=== PATIENT | male | born 1955 | race Hispanic/Latino ===

== ENCOUNTER 2016-07-12 18:39 | Emergency (ER) | payer MEDICARE, OTHER, MEDICAID ==
[2016-07-12 18:46] VITALS: BMI 22.3
[2016-07-12 19:39] LABS: BASO % 0.4 % (0.0-2.0); EOS % 0.7 % (0.0-4.0); HEMATOCRIT 32.1 % (35.0-51.0); LYMPH # 0.3 K/uL (1.0-4.3); LYMPH % 6.2 % (20.0-40.0); MEAN CELL VOLUME 88.1 fL (80.0-94.0); MEAN CORPUSCULAR HEMOGLOBIN 29.3 pg (27.0-31.0); MEAN CORPUSCULAR HGB CONC 33.3 g/dL (33.0-37.0); MEAN PLATELET VOLUME 8.7 fL (7.2-11.7); MONO # 0.4 K/uL (0.0-0.8); MONO % 6.8 % (0.0-10.0); NRBC % 0.1 % (0.0-2.0); PLATELET COUNT 31 K/uL (130-400); RED CELL DISTRIBUTION WIDTH 17.5 % (11.5-14.5); WHITE BLOOD COUNT 5.4 K/uL (4.8-10.8)
[2016-07-12 19:47] LABS: CHLORIDE 107 mmol/L (98-107); SODIUM 136 mmol/L (132-148)
[2016-07-12 19:49] LABS: GFR AFRICAN-AMERICAN > 60
[2016-07-12 19:50] LABS: ALKALINE PHOSPHATASE 168 U/L (38-126); ALT/SGPT 59 U/L (21-72); AST/SGOT 71 U/L (17-59); BILIRUBIN,TOTAL 1.5 mg/dL (0.2-1.3); BLOOD UREA NITROGEN 36 mg/dL (9-20); CALCIUM 8.7 mg/dl (8.6-10.4); CARBON DIOXIDE 17 mmol/L (22-30); GLUCOSE,RANDOM 223 mg/dL (75-110)
[2016-07-12 19:51] LABS: ALCOHOL SERUM < 10 mg/dl (0-10)
--- NOTE | 2016-07-12 19:54 | C.PDOC ---
History Of Present Illness 61 y/o male, brought to ED by family, with past medical history including schizophrenia, hepatic cirrhosis, hepatic encephalopathy. Family reports patient has been at [facility] for 3 days, and notes it is unclear if patient is getting lactulose. Family reports no BM today. Notes that patient usually has bowel movement with lactulose. Denies any other complaints; no fever, chills , nausea, vomiting, diarrhea, or other associated symptoms. Time Seen by Provider: 07/12/16 19:16 Chief Complaint (Nursing): Altered Mental Status History Per: Family History/Exam Limitations: no limitations Current Symptoms Are (Timing): Still Present Recent travel outside of the [place]: No Past Medical History Reviewed: Historical Data, Nursing Documentation, Vital Signs Vital Signs: Last Vital Signs Temp 97.7 F 07/12/16 18:46 Pulse 106 H 07/12/16 18:46 Resp 22 07/12/16 18:46 BP 141/99 H 07/12/16 18:46 Pulse Ox 99 07/12/16 19:54 - Medical History PMH: Alzheimer's Disease, Anemia, Asthma, Bipolar Disorder, CAD, COPD, Diabetes , Fractures, Gall Bladder Disease, HTN, Hypercholesterolemia, Hypothyroidism, Paranoia, Chronic Kidney Disease (STAGE 2), Schizophrenia, Seizures Surgical History: Endoscopy - [facility] Procedures OTHER ENDOSCOPY OF SM INTEST (10/31/14) OTHER LOCAL DESTRUC SKIN (09/24/14) Family History: States: Unknown Family Hx - Social History Hx Tobacco Use: Yes Hx Alcohol Use: Yes Hx Substance Use: No - Immunization History Hx Tetanus Toxoid Vaccination: No Hx Influenza Vaccination: Yes Hx Pneumococcal Vaccination: No Review Of Systems Constitutional: Negative for: Fever, Chills Cardiovascular: Negative for: Chest Pain Respiratory: Negative for: Cough, Shortness of Breath Gastrointestinal: Positive for: Constipation. Negative for: Nausea, Vomiting, Diarrhea Skin: Negative for: Rash Neurological: Negative for: Headache, Dizziness Physical Exam - Physical Exam Appears: Non-toxic, Other (confused, pleasant ) Skin: Warm, Dry, Other (mildly icteric) Head: Atraumatic, Normacephalic Oral Mucosa: Moist Chest: Symmetrical Cardiovascular: Rhythm Regular Respiratory: Normal Breath Sounds, No Rales, No Rhonchi, No Wheezing Gastrointestinal/Abdominal: Soft, No Tenderness Extremity: Normal ROM, Capillary Refill (< 2 sec. ) Neurological/Psych: Oriented x3, Normal Speech, Normal Cognition ED Course And Treatment - Laboratory Results Result Diagrams: 07/12/16 19:35 07/12/16 19:35 Lab Interpretation: Normal (ammonia 20 (nl 9-33)) ECG: Interpreted By Me ECG Rhythm: Sinus Rhythm O2 Sat by Pulse Oximetry: 99 (RA) Pulse Ox Interpretation: Normal - Radiology CXR: Interpreted by Me CXR Interpretation: Yes: No Acute Disease Progress Note: EKG, CXR, labs ordered. Lactulose given. Reevaluation Time: 20:18 Reassessment Condition: Unchanged (baseline) Medical Decision Making Medical Decision Making: baseline schizophrenia, normal ammonia level so seems he's getting his lactulose @ the [facility] return to [facility]- continue same regimen Disposition Doctor Will See Patient In The: Office Counseled Patient/Family Regarding: Studies Performed, Diagnosis - Disposition Disposition: HOME/ ROUTINE Disposition Time: 20:19 Condition: GOOD - Clinical Impression Clinical Impression: Schizophrenia - Scribe Statement The provider has reviewed the documentation as recorded by the [employer] All medical record entries made by the Bimal[employer] were at my direction and personally dictated by me. I have reviewed the chart and agree that the record accurately reflects my personal performance of the history, physical exam, medical decision making, and the department course for this patient. I have also personally directed, reviewed, and agree with the discharge instructions and disposition.
[2016-07-12 20:20] LABS: EOSINOPHIL 1 % (0-4); NEUTROPHIL 86 % (50-75); TOTAL CELLS COUNTED 100
[2016-07-12 20:50] LABS: RBC URINE < 1 /hpf (0-3); URINE BACTERIA RARE (<OCC); URINE BILIRUBIN NEGATIVE (NEGATIVE); URINE BLOOD NEGATIVE (NEGATIVE); URINE COLOR Yellow (YELLOW); URINE GLUCOSE (UA) NORMAL (Normal); URINE KETONE NEGATIVE (NEGATIVE); URINE LEUKOCYTE ESTERASE NEG Leu/uL (Negative); URINE PROTEIN NEGATIVE (NEGATIVE); URINE UROBILINOGEN NORMAL mg/dL (0.2-1.0); WBC URINE < 1 /hpf (0-5)
[2016-07-12 21:54] VITALS: RESP 16; O2SAT 99
[2016-07-13 00:54] VITALS: BP 149/72; PULSE 98; TEMP 97.8
--- NOTE | 2016-07-13 08:16 | RAD ---
PROCEDURE: CHEST RADIOGRAPH, 1 VIEW HISTORY: Detox/Psy COMPARISON: 05/03/2016 FINDINGS: LUNGS: Diffuse increased interstitial lung markings which may represent mild venous congestion. Upper lobe granulomatous changes. Small nodular density at the right lung base laterally may represent vessel on end. Mild bilateral hilar prominence. PLEURA: No pneumothorax or pleural fluid seen. CARDIOVASCULAR: Mild calcification at the aortic knob. OSSEOUS STRUCTURES: No significant abnormalities. VISUALIZED UPPER ABDOMEN: Normal. OTHER FINDINGS: None. IMPRESSION: Diffuse increased interstitial lung markings which may represent mild venous congestion. Upper lobe granulomatous changes. Small nodular density at the right lung base laterally may represent vessel on end. Mild bilateral hilar prominence.
--- NOTE | 2016-07-13 18:12 | CARD ---
APPROVED REPORT EKG Measurement Heart [id number] CT [id number] <Conclusion> Normal sinus rhythm Left axis deviation Minimal voltage criteria for LVH, may be normal variant Cannot rule out Anterior infarct, age undetermined Abnormal ECG
== END 2016-07-13 00:55 | disposition home or self-care (01) ==
LOC: C.ER 18:39
DX: F20.9 Schizophrenia, unspecified (principal)
CPT/HCPCS: 71010; 80053; 81001; 82140; 85025; 93005; 99285; G0480